=== PATIENT | female | born 1950 | race Caucasian/White ===

== ENCOUNTER 2024-04-18 17:02 | Emergency (ER) | payer OTHER, SELFPAY ==
--- NOTE | ~2024-04-18 | XR_ITS ---
CHEST RADIOGRAPH, PA AND LATERAL CLINICAL HISTORY: Pain left side increases with deep breath . COMPARISON: None available TECHNIQUE: PA and lateral views of the chest. FINDINGS The cardiomediastinal silhouette is unremarkable. The lungs are clear. Visualized osseous structures and soft tissues are unremarkable. IMPRESSION: No focal infiltrate or effusion. Reviewed, dictated and finalized at location A.
[2024-04-18 17:13] VITALS: BP 152/87; PULSE 85; RESP 16; TEMP 36.9; O2SAT 98
--- NOTE | 2024-04-18 17:57 | ED.GENADULT ---
HPI - General Adult General Chief complaint: Abdominal Pain Stated complaint: Upper Abdominal Pain/Left Side Time Seen by Provider: 04/18/24 17:45 Source: patient, RN notes reviewed and old records reviewed Mode of arrival: ambulatory Limitations: no limitations History of Present Illness HPI narrative: 74 year old female who presents to express care with complaints of left upper abdominal pain along her anterior rib area which started this morning at 0900. which is constant ache. Patient reports pain is sharp when she takes a deep breath at times. Patient denies any recent fall or any trauma to area, denies any radiation of pain, nausea or vomiting or any shortness of breath. Patient reports that she just saw her MD recently for preop assessment for up coming cataract surgery. Patient states that she called her doctors office was told by nurse to go to urgent care that doctor would want a chest x-ray. Patient denies any fevers or any recent URI symptoms, respirations nonlabored and SAO2 99% on room air. MD complaint: pain upper left abdomen along anteior rib area Onset (ago): day(s) (0900 today) Severity: mild Severity scale (1-10): 2 Exacerbating factors: other (deep breath) Treatments prior to arrival: none Related Data Home Medications Medication Instructions Recorded Confirmed B6 1.7 mg-folic 400 mcg-B12 2.4 cap PO 04/18/24 [id number] oral capsule ([employer]uriva Plus [employer]) Ocuvite Preservision 04/18/24 ascorbic acid (vitamin C) 1,000 mg 1 g PO DAILY 04/18/24 04/18/24 tablet atorvastatin 20 mg tablet mg 04/18/24 calcium 1,000 mg (as tablet PO 04/18/24 carbonate)-vitamin D3 20 mcg (800 unit) tablet cyanocobalamin (vitamin B-12) 2,500 mcg PO DAILY 04/18/24 04/18/24 2,500 mcg tablet levothyroxine 112 mcg tablet mcg 04/18/24 sbpyznyt-vvs-kialn5 250 mg-dha 90 cap PO 04/18/24 mg-epa 160 ws-xmhg-zcyd-zeax capsule (Ocuvite Adult 50 Plus) omega-3 fatty acids-fish oil 684 1 cap PO DAILY 04/18/24 04/18/24 mg-1,200 mg capsule,delayed release omeprazole magnesium 20 mg 20 mg PO DAILY 04/18/24 04/18/24 tablet,delayed release (Prilosec OTC) raloxifene 60 mg tablet 60 mg PO DAILY 04/18/24 04/18/24 triamcinolone acetonide 0.1 % topical 04/18/24 topical ointment vitamin E 1,000 unit tablet tablet PO 04/18/24 Allergies Allergy/AdvReac Type Severity Reaction Status Date / Time codeine Allergy Other Verified 04/18/24 17:48 latex Allergy Rash Verified 04/18/24 17:48 Review of Systems Review of Systems: CONSTITUTIONAL: Denies fever, chills, or sweats. EYES: Denies visual changes, redness, or discharge. ENT: Denies rhinorrhea, congestion, sore throat, or otalgia. CARDIOVASCULAR: Denies chest pain, palpitations, or edema. RESPIRATORY: Denies cough or dyspnea. GASTROINTESTINAL: Reports upper left abdominal pain along left anterior rib area, no nausea, vomiting, or diarrhea. GENITOURINARY: Denies dysuria or hematuria. SKIN: Denies rash or itching. MUSCULOSKELETAL: Denies back pain, joint pain, or myalgia. NEUROLOGIC: Denies headache, numbness, or weakness. PSYCHIATRIC: Denies anxiety or depression. All systems reviewed & are unremarkable except as noted in HPI and below PMFSH Past Medical History Medical History (Updated 04/20/24 @ 14:31 by Patti Chamorro NP) Arthritis Cataracts, both eyes GERD (gastroesophageal reflux disease) Hyperlipidemia Hypothyroidism Surgical History Surgical History (Updated 04/20/24 @ 14:26 by Patti Chamorro NP) H/O oral surgery Status post right foot surgery Social History Social History (Updated 04/20/24 @ 14:25 by Patti Chamorro NP) Smoking status: Never smoker Alcohol intake: current Alcohol use details: rare Substance use type: does not use Gender identity (if verbalized by the patient): Female Comments At time of signature, agree with nursing past medical, surgical, social and family history.
== END 2024-04-18 19:08 | disposition home or self-care (01) ==
PROVIDERS: Emergency Provider Registered Nurse; PCP Family Medicine
DX: R07.89 Other chest pain (principal); M19.90 Unspecified osteoarthritis, unspecified site; K21.9 Gastro-esophageal reflux disease without esophagitis; E78.5 Hyperlipidemia, unspecified; E03.9 Hypothyroidism, unspecified; H26.9 Unspecified cataract
CPT/HCPCS: 71046; 99203; G0463